=== PATIENT | female | born 1965 | race Caucasian/White ===

== ENCOUNTER 2018-06-24 11:25 | Emergency (ER) | payer SELFPAY ==
[~2018-06-24] VITALS: Ht 160 cm; Wt 72.6 kg
[2018-06-24] MEDS ORDERED: IV NORMAL SALINE 1000 ML BAG IV ONE (12:00)
[2018-06-24 12:21] LABS: BASOPHILS # (AUTO) 0.2 K/uL (0.0-8.0); BASOPHILS % (AUTO) 1.1 % (0.0-2.0); EOSINOPHILS % (AUTO) 0.2 % (0.0-7.0); HEMATOCRIT 44.3 % (31.2-41.9); HEMOGLOBIN 15.3 g/dL (10.9-14.3); LYMPHOCYTES # (AUTO) 3.2 K/uL (20.0-40.0); LYMPHOCYTES % (AUTO) 24.1 % (20.5-51.5); MEAN CORPUSCULAR HEMOGLOBIN 32.1 uug (24.7-32.8); MEAN CORPUSCULAR HGB CONC 35 g/dL (32.3-35.6); MONOCYTES # (AUTO) 0.5 K/uL (2.0-10.0); MONOCYTES % (AUTO) 3.7 % (0.0-11.0); NEUTROPHILS # (AUTO) 9.5 K/uL (1.8-8.9); NEUTROPHILS % (AUTO) 70.9 % (38.5-71.5); PLATELET COUNT (AUTO) 344 K/uL (179-408); RED BLOOD CELL COUNT(AUTO) 4.76 MIL/uL (3.63-4.92); WHITE BLOOD COUNT (AUTO) 13.5 K/uL (3.8-11.8)
[2018-06-24 12:29] LABS: CARBON DIOXIDE 27 mmol/L (21-32); CHLORIDE 102 mmol/L (98-107); CREATININE 0.8 mg/dL (0.6-1.3); GLUCOSE 104 mg/dL (74-106); POTASSIUM 3.7 mmol/L (3.5-5.1); UREA NITROGEN, BLOOD 13 mg/dL (7-18)
[2018-06-24 12:36] LABS: ALANINE AMINOTRANSFERASE 36 U/L (14-59); ALKALINE PHOSPHATASE 86 U/L (50-136); ASPARTATE AMINOTRANSFERASE 31 U/L (15-37); BILIRUBIN,DIRECT 0.1 mg/dL (0.0-0.2); BILIRUBIN,TOTAL 0.2 mg/dL (0.2-1.0); TOTAL PROTEIN, SERUM 8.5 g/dL (6.4-8.2)
[2018-06-24 12:39] LABS: ACETAMINOPHEN < 2.0 ug/mL (10-30)
[2018-06-24 12:45] LABS: ETHANOL 444 MG/DL (0-0)
[2018-06-24 12:52] LABS: THYROID STIMULATING HORMONE 0.482 mIU/mL (0.358-3.740)
--- NOTE | 2018-06-24 16:12 | NUR ---
PT AWAKE, AXOX4, WALKS IN STEADY GAIT.PT SAYS WANTS TO GO HOME. PT GAVE THE PERSONAL INFO TO BE UPDATD.PT SAYS HAS A PLACE TO GO AND WILL USE LYFT TO GET HOME.
--- NOTE | 2018-06-24 16:49 | NUR ---
CALLED [facility] PER PT REQUEST. Patient discharged to home in stable conditon. Written and verbal after care instructions given. Patient verbalizes understanding of instructions.PT WALKS IN STEADY GAIT. PT SAYS THAT SHE IS VERY SORRY FOR WHAT HAPPENED TODAY. CHANGE OF CLOTHES PROVIDED FOR PT BECAUSE PT CLOTHING WAS WET DUE TO RAIN
[2018-06-24 16:53] VITALS: BP 103/56
== END 2018-06-24 16:58 | disposition home or self-care (01) ==
LOC: EDBD 11:25 → ER 11:25
DX: F10.129 Alcohol abuse with intoxication, unspecified (principal); Y90.0 Blood alcohol level of less than 20 mg/100 ml
CPT/HCPCS: 36415; 70450; 71045; 72125; 80048; 80076; 82140; 84443; 84484; 84702; 85025; 85730; 93005; 99284; G0480 ×2; G0481; 70030-TC; A4663; J7030